=== PATIENT | female | born 1995 | race Caucasian/White ===

== ENCOUNTER → 2022-01-01 08:56 | Outpatient (CLI) | payer OTHER, SELFPAY ==
--- NOTE | 2022-01-01 08:58 | DI.MRI.S_ITS ---
PROCEDURE: MR LUMBAR SPINE WO CON INDICATIONS: Spinal stenosis, lumbar region with neurogenic cla TECHNIQUE: Noncontrast sagittal T1 spin echo and T2 fast echo, sagittal STIR, and T2 fast spin echo through the lumbar spine. In cases with scoliosis, additional coronal T2 fast spin echo may be performed. COMPARISON: None. FINDINGS: Image quality: Excellent. Alignment and Curvature: There is grade 1 L5 on S1 anterolisthesis. Spinal alignment is otherwise normal. Bone Marrow: Marrow is of normal overall signal. No acute vertebral body compression fractures. Spinal Cord: Conus medullaris terminates at the L1 level. Visualized cord demonstrates normal signal and size. Paraspinous Soft Tissues: No paravertebral masses. T12-L1: Normal appearance. L1-L2: Normal appearance. L2-L3: Normal appearance. L3-L4: Normal appearance. L4-L5: Moderate disc desiccation and height loss. Broad-based disc bulge. Moderate facet ligamentum flavum hypertrophy. No canal stenosis. No neural foraminal stenosis. There is a posterior focal high-intensity zone. L5-S1: Anterolisthesis. Severe disc desiccation and height loss. Vacuum disc phenomenon. Severe facet sclerosis. No canal stenosis. Moderate bilateral neural foraminal stenosis. No flattening of the bilateral exiting nerve roots. IMPRESSION: 1. Anterolisthesis and broad-based disc bulge results in moderate bilateral neural foraminal stenosis at L5-S1. No flattening of the exiting nerve roots. 2. Posterior annular tear at L4-5. 3. No other significant foraminal stenosis or canal stenosis of the lumbar spine. Dictated by: Armida Paige M.D. on 01/01/2022 at 12:19 Approved by: Armida Paige M.D. on 01/01/2022 at 12:23
== END ==
PROVIDERS: Referring Provider Orthopaedic Surgery Orthopaedic Surgery of the Spine; Visit Provider Orthopaedic Surgery Orthopaedic Surgery of the Spine
DX: M48.062 Spinal stenosis, lumbar region with neurogenic claudication (principal); M48.07 Spinal stenosis, lumbosacral region; M43.17 Spondylolisthesis, lumbosacral region; M51.37 Other intervertebral disc degeneration, lumbosacral region
CPT/HCPCS: 72148